=== PATIENT | female | born 1985 | race Caucasian/White ===

== ENCOUNTER 2022-10-07 21:32 | Emergency (ER) | payer BC ==
[2022-10-07 21:41] VITALS: BP 144/97; PULSE 85; RESP 22; TEMP 97.7
[2022-10-07] MEDS ORDERED: HYDROcodone/APAP 10-325MG 1 EACH TAB PO ONE (21:50)
[2022-10-07] MEDS ORDERED: DIPH,PERTUS(ACELL)TETVAC-LF 0.5 ML VIAL IM ONE (21:50)
[2022-10-07] MEDS ORDERED: BACITRACIN OINT 1 EACH PACKET TOPICAL ONE (22:16)
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
[2022-10-07] MEDS ORDERED: ONDANSETRON 4 MG ODT STARTER PACK 2 TAB BTL PO STA (22:45)
[2022-10-07] MEDS ORDERED: BACITRACIN ZINC 500 UNIT/GM OINT 28.4 GM TUBE TOPICAL ONE (22:45)
[2022-10-08] MEDS ORDERED: diphenhydrAMINE 25 MG CAP PO STA (02:18)
[2022-10-08] MEDS ORDERED: HYDROcodone/APAP 5-325MG 1 EACH TAB PO STA (02:21)
== END 2022-10-08 02:35 | disposition home or self-care (01) ==
LOC: EC 21:32
DX: T23.271A Burn of second degree of right wrist, initial encounter (principal); T31.0 Burns involving less than 10% of body surface; I10 Essential (primary) hypertension; F17.200 Nicotine dependence, unspecified, uncomplicated; Z23 Encounter for immunization; Z88.8 Allergy status to other drugs, medicaments and biological substances; Z86.59 Personal history of other mental and behavioral disorders
CPT/HCPCS: 90471; 90715; 99284